=== PATIENT | female | born 1940 | race Caucasian/White ===

== ENCOUNTER 2021-07-08 11:07 | Outpatient (CLI) | payer MEDICARE | END 2021-07-08 11:08 | disposition home or self-care (01) | LOC: CSHCP 11:07 | PROVIDERS: ATTEND Internal Medicine Critical Care Medicine | DX: R06.09 Other forms of dyspnea (principal); R94.2 Abnormal results of pulmonary function studies; J90 Pleural effusion, not elsewhere classified; R91.8 Other nonspecific abnormal finding of lung field | CPT/HCPCS: 71275; 82565; 94060; 94726; 94729; 94760 ==

== ENCOUNTER 2021-07-23 07:09 | Day surgery (SDC) | payer MEDICARE ==
[2021-07-23] MEDS ORDERED: Lidocaine 1% PF 5 ML VIAL ONE (07:22)
[2021-07-23] MEDS ORDERED: Sodium Bicarbonate 2.5 MEQ/5 ML VIAL ONE (07:22)
[2021-07-23 07:58] VITALS: BP 106/59; TEMP 97.8
[2021-07-23] MEDS ORDERED: FLU VACC QS2021-22(65YR UP)/PF 240 MCG/0.7 ML SYRINGE IM ONE (08:30)
== END 2021-07-23 10:00 | disposition home or self-care (01) ==
LOC: CSHRAD 07:09
PROVIDERS: ATTEND Surgery
DX: M54.12 Radiculopathy, cervical region (principal); M48.02 Spinal stenosis, cervical region
CPT/HCPCS: 62302; 72040; 72126